=== PATIENT | male | born 1965 | race Caucasian/White ===

== ENCOUNTER 2021-01-01 11:55 | Day surgery (SDC) | payer OTHER ==
[~2021-01-01] VITALS: Ht 182.9 cm; Wt 111.8 kg
[~2021-01-01 11:55] MED LIST: ALEVE220 MG PO; ANDROGEL1.25 GM; ANDROGEL75 G1 TD; CLARITIN10 M2 PO; NORCO 10-325 T1 EACH PO; TIROSINT75 MCG PO
--- NOTE | 2021-01-01 14:02 | NUR ---
01/01/21 1402 Roxy Gong 1356 PATIENT AWAKE ON ARRIVAL TO PACU. RESP EVEN AND UNLABORED, ROOMAIR SATS >93%. PATIENT DENIES PAIN OR NAUSEA.
[2021-01-02] MEDS ORDERED: MOTRIN IB200 MG PO ×2 (08:58)
[2021-01-02] MEDS ORDERED: TYLENOL EXTRA500 MG PO ×2 (08:59)
[2021-01-02] MEDS ORDERED: PERCOCET 7.5-31 EACH PO ×2 (09:00)
--- NOTE | 2021-01-02 11:59 | PATH ---
[facility] [address] [place] [place] [address] Signed SPECIMEN(S): A DESCENDING/LEFT COLON POLYP AT 70 CM SPECIMEN(S): B BIOPSY AT 50 CM SPECIMEN SOURCE: A. DESCENDING/LEFT COLON POLYP AT 70 CM B. BIOPSY AT 50 CM CLINICAL HISTORY: Colonoscopy. History of polyps. MICROSCOPIC DESCRIPTION: Histologic sections of all submitted blocks are examined by light microscopy. These findings, together with the gross examination, support the pathologic diagnosis. FINAL PATHOLOGIC DIAGNOSIS: A. Colon, descending/left at 70 cm, polypectomy: - Tubular adenoma. B. Colon, 50 cm, polypectomy: - Tubular adenoma. BRP:cml:C2NR GROSS DESCRIPTION: Two specimens are received in two containers labeled with "KM." A. The specimen, labeled "KM, 70 cm left colon polypectomy," is received in formalin and consists of two fragments of pink-aquino tissue (0.3 and 0.5 cm in greatest dimension). The resection margin of the larger piece is inked blue and the larger piece is bisected. The specimen is submitted entirely in cassette (A1). B. The specimen, labeled "KM, 50 cm," is received in formalin and consists of three fragments of pink-aquino tissue (0.2-0.4 cm in greatest dimension). The specimen is submitted entirely in cassette (B1). AC (under the direct supervision of a pathologist) The Gross Description was prepared using a voice recognition system. The report was reviewed for accuracy; however, sound-alike word errors, addition and/or deletions may occur. If there is any question about this report, please contact Client Services. PERFORMING LABORATORY: The technical component was performed by [employer], [address] [place] [id number] (Clinical Advisor: Emily Schmitz MD; CLIA# [id number]). PATIENT NAME: MISTY PEÑA PATHOLOGY DATE OF : 67 REPORT #: [id number] PHYSICIAN: WILMER PATHOLOGY PCP: NOELLE CARPENTER PAC REPORT IS CONFIDENTIAL AND NOT TO BE RELEASED WITHOUT AUTHORIZATION [facility] [address] [place], [place] [address] Signed Professional interpretation was performed by [facility] [facility], [address] [place], [place] [address] (CLIA# [id number]). Diagnostician: Donavan Cook MD Pathologist Electronically Signed 01/02/2021 Copies: ~ PATIENT NAME: MISTY PEÑA PATHOLOGY DATE OF : 67 REPORT #: [id number] PHYSICIAN: WILMER PATHOLOGY PCP: NOELLE CARPENTER PAC REPORT IS CONFIDENTIAL AND NOT TO BE RELEASED WITHOUT AUTHORIZATION
--- NOTE | 2021-01-03 10:50 | OR ---
[facility] [address] [place], [place] [address] Signed DATE OF OPERATION: 01/01/2021 SURGEON: Addis Middleton MD PREOPERATIVE DIAGNOSIS: History of polyps (greater than 4.5 years ago). POSTOPERATIVE DIAGNOSIS: Polyps x4. PROCEDURE: Total colonoscopy to cecum with cold snare polypectomy x2 and cold morcellation polypectomy x2. ANESTHESIA: Intravenous sedation; fentanyl 100 mcg and Versed 7 mg total. INDICATION: This 55-year-old white man is a patient of VIRGINIA Bolaños. He underwent colonoscopy 4.5 years ago in [place] by Dr. Lonnie Pryor where he was found to have several polyps. He is recommended to have repeat colonoscopy in 3 years. Due to the pandemic and other factors, delay of repeat colonoscopy is noted. He has no symptoms of bleeding diarrhea or constipation at this time. He is admitted at this time to undergo colonoscopy for surveillance. The risks of bleeding, infection, and perforation were reviewed with him. He understands and wished to proceed. FINDINGS: The prep was good. Complete colonoscopy was undertaken to the cecum without question. Had 4 small polyps of the left colon dominantly, all were excised completely. Two were lost unfortunately in attempts to retrieval. DESCRIPTION OF PROCEDURE: The patient was brought to the endoscopy suite and placed in lateral decubitus position, given intravenous sedation to the point of slurred speech and nystagmus. Digital rectal examination was normal. An Olympus video colonoscope was passed in the rectum and manipulated throughout the colon ultimately intubating the cecum itself. The ileocecal valve and appendiceal orifice were normal. The layer of mucoid stool was noted in the right colon. Irrigation was undertaken to allow for good visualization of the mucosa. This cleared Electronically Signed By: ADDIS MIDDLETON MD 01/03/21 1050 PATIENT NAME: MISTY PEÑA OPERATIVE REPORT DATE OF : 67 REPORT #: [id number] PHYSICIAN: ADDIS MIDDLETON MD PCP: JASMINE WATKINS PAC REPORT IS CONFIDENTIAL AND NOT TO BE RELEASED WITHOUT AUTHORIZATION [facility] [address] [place], [place] [address] Signed up by the mid transverse colon. Careful withdrawal of the scope throughout showed no sign of abnormality until approximately 70 cm from the anal verge where a small sessile polyp was noted. This was excised with cold snare technique. The scope was further withdrawn and 2 other small polyps were noted at 50 cm, excised with cold morcellation technique and finally a small one in the sigmoid excised with snare technique. Unfortunately, 2 of the very small polyps were lost in the attempts to retrieval. Further withdrawal of scope allowed for retroflexed view in the rectum, which was normal. The polyp trap in the endoscope system was examined thoroughly and still no evidence of the polyps that had been excised at least x2. He was taken to the recovery room in good condition. CONCLUDING DIAGNOSIS: Small polyps x4. PLAN: Recommend repeat colonoscopy in 3 years sooner if clinically indicated. He will return to the ongoing care of VIRGINIA Bolaños. MD DASH Bah/SHERRIE /[id number] cc: Jasmine Watkins PA-C Copies: JASMINE WATKINS ~ Electronically Signed By: ADDIS MIDDLETON MD 01/03/21 1050 PATIENT NAME: MISTY PEÑA OPERATIVE REPORT DATE OF : 67 REPORT #: [id number] PHYSICIAN: ADDIS MIDDLETON MD PCP: JASMINE WATKINS REPORT IS CONFIDENTIAL AND NOT TO BE RELEASED WITHOUT AUTHORIZATION
== END 2021-01-01 14:30 | disposition home or self-care (01) ==
LOC: OPS 11:55 → DS 11:55 → OPS 13:00 → DS 13:00 → OPS 14:30
PROVIDERS: ATTEND Surgery
PROC: 0DBN8ZX Excision of Sigmoid Colon, Via Natural or Artificial Opening Endoscopic, Diagnostic (ICD-10-PCS; 2021-01-01)
PROC: 0DBP8ZX Excision of Rectum, Via Natural or Artificial Opening Endoscopic, Diagnostic (ICD-10-PCS; principal; 2021-01-01 13:00)
DX: D12.4 Benign neoplasm of descending colon (principal); E03.9 Hypothyroidism, unspecified
CPT/HCPCS: 99153; G0500

== ENCOUNTER 2021-01-02 06:00 | Day surgery (SDC) | payer OTHER ==
[~2021-01-02] VITALS: Ht 182.9 cm; Wt 111.8 kg
--- NOTE | 2021-01-02 08:54 | NUR ---
01/02/21 0854 Roxy Gong 0845 PATIENT ARRIVES TO PACU AWAKE, TALKING APPROPRIATELY WITH STAFF. RESP EVEN AND UNLABORED, MASK AT 10 LITERS, DECREASED TO 6 LITERS. 0850 PATIENT SITTING UP TALKING WITH STAFF. PILLOW GIVEN TO SPLINT ABD. RESP EVEN AND UNLABORED, MASK OFF, ROOM AIR SATS >95%. CONTINUES TO DENY PAIN OR NAUSEA.
[2021-01-02] MEDS ORDERED: MOTRIN IB200 MG PO ×2 (08:58)
[2021-01-02] MEDS ORDERED: TYLENOL EXTRA500 MG PO ×2 (08:59)
[2021-01-02] MEDS ORDERED: PERCOCET 7.5-31 EACH PO ×2 (09:00)
--- NOTE | 2021-01-02 09:32 | NUR ---
0920-PATIENT BACK TO ROOM FROM PACU ON . RECEIVED REPORT FROM ALEXIS CAMPOS. PATIENT IS AWAKE. VSS. RATES PAIN 2/10 AND THIS IS TOLERABLE. DENIES NAUSEAS. DRESSING IS CLEAN, DRY, AND INTACT. PROVIDED PATIENT WITH PUDDING, CRACKERS, AND WATER. PARTNER AT BEDSIDE. CALL LIGHT WITHIN REACH.
--- NOTE | 2021-01-02 10:17 | NUR ---
1002-PATIENT RATES PAIN 3/10 AND GIVEN PAIN MEDICATION PER EMAR. 1010-PATIENT UP TO BATHROOM WITH 1 RN ASSIST. GAIT STEADY AND TOLERATED WELL. PATIENT VOIDED 575ML. PATIENT STATES PAIN IS TOLERABLE UP WALKING AROUND.
--- NOTE | 2021-01-02 10:23 | NUR ---
PATIENT AWAKE AND LAYING IN BED. VSS. RATES PAIN 3/10. DENIES NAUSEA. DRESSING HAS A SMALL AMOUNT OF RED DRAINAGE NOTED. PARTNER AT BEDSIDE. PATIENT IS READY TO GO HOME.
--- NOTE | 2021-01-02 11:06 | NUR ---
PT IS ALERT, ORIENTED AND SUPPORTED BY HIS FRIEND ROXANA.PT SEEMS TO BE INFORMED, ALL QUESTIONS ASKED ANSWERED. ROXANA WILL LEAVE FOR WORK, BUT RETURN FOR DC. PT REQUESTED PRAYER, WILL FOLLOW NEEDED
--- NOTE | 2021-01-03 10:50 | OR ---
[facility] [address] [place], [place] [address] Signed DATE OF OPERATION: 01/02/2021 SURGEON: Addis Middleton MD PREOPERATIVE DIAGNOSIS: Incisional hernia at umbilicus. POSTOPERATIVE DIAGNOSIS: Incisional hernia at umbilicus. PROCEDURES: 1. Repair of incisional hernia. 2. Implantation of Prolene mesh underlay technique. ANESTHESIA: General endotracheal, Celestine Carlos, VENDING MACHINE COIN COLLECTOR and local 10 mL of 0.25% Marcaine with epinephrine. INDICATION: This 55-year-old man is a patient of VIRGINIA Bolaños. He underwent laparoscopic cholecystectomy by Dr. Vikram Montgomery in 2013. He has since developed a hernia in the region of the umbilicus. A transverse supraumbilical scar is noted and a reducible hernia is identified in this area. The patient underwent colonoscopy by me yesterday which showed four small polyps, all of them excised. He is admitted at this time today to undergo repair of the incisional hernia likely with implantation of Prolene mesh. Understanding well, the risks of bleeding, infection, and recurrence. Understand this, he wished to proceed. FINDINGS: There were actually two defects, one beneath the transverse incision in the supraumbilical area and one at the umbilicus itself. Both were made to be in continuity with the other development of the properitoneal space and implantation of Prolene mesh in an underlay technique. The fascia was reapproximated subsequently. DESCRIPTION OF PROCEDURE: The patient was brought to the operating room, given a general endotracheal anesthetic. Preoperative antibiotic Ancef was given. Sequential compression device stockings were used and heparin subcutaneously administered. The abdomen was prepared with a chlorhexidine solution and draped sterilely after clipping. Palpation of the umbilicus and the transverse incision above the umbilicus was undertaken and the fascial defect at Electronically Signed By: ADDIS MIDDLETON MD 01/03/21 1050 PATIENT NAME: MISTY PEÑA OPERATIVE REPORT DATE OF : 67 REPORT #: [id number] PHYSICIAN: ADDIS MIDDLETON MD PCP: JASMINE WATKINS PAC REPORT IS CONFIDENTIAL AND NOT TO BE RELEASED WITHOUT AUTHORIZATION [facility] [address] [place], [place] [address] Signed the umbilicus was quite clear to a degree beneath the incision itself. On the basis of this, a vertical incision was made crossing the transverse incision, but in a circumumbilical fashion. Dissection was carried through the dermis with electrocautery and using sharp and electrocautery dissection, dissection was carried down to the fascial level. There appeared to be a fascial defect just below the umbilicus itself as well as a fascial defect cephalad to that. The fascial defects were made to be in continuity with each other. The fascia was cleared from the overlying subcutaneous tissue and the hernia sac opened and intraabdominal contents found to be normal. A plane was developed between the properitoneal space and the overlying fascia circumferentially for a few cm. The opened peritoneum was then reapproximated with running 2-0 Vicryl suture. A circular piece of Prolene mesh was placed in the properitoneal space and secured circumferentially with interrupted 0 Prolene sutures with Prolene pledgets. The fascia was then reapproximated vertically with interrupted 0 Prolene with Prolene pledgets as well. A 10 mL of 0.25% Marcaine with epinephrine was injected locally. Gabriela layer was reapproximated with interrupted 2-0 Vicryl and the skin was closed with running subcuticular 3-0 Vicryl. Special care was taken to align the previous transverse incision. MD DASH Bah/SHERRIE /[id number] cc: Jasmine Watkins PA-C Copies: JASMINE WATKINS ~ Electronically Signed By: ADDIS MIDDLETON MD 01/03/21 1050 PATIENT NAME: MISTY PEÑA OPERATIVE REPORT DATE OF : 67 REPORT #: [id number] PHYSICIAN: ADDIS MIDDLETON MD PCP: JASMINE WATKINS PAC REPORT IS CONFIDENTIAL AND NOT TO BE RELEASED WITHOUT AUTHORIZATION
== END 2021-01-02 10:30 | disposition home or self-care (01) ==
LOC: DS 06:00
PROVIDERS: ATTEND Surgery
PROC: 0WUF0JZ Supplement Abdominal Wall with Synthetic Substitute, Open Approach (ICD-10-PCS; principal; 2021-01-02 06:45)
DX: K43.2 Incisional hernia without obstruction or gangrene (principal); E03.9 Hypothyroidism, unspecified
CPT/HCPCS: 00832; C1781; J0690; J1100; J1644; J1885; J2001; J2250; J2405; J2704; J3010; J7121

== ENCOUNTER 2022-11-18 00:24 | Emergency (ER) | payer OTHER ==
[~2022-11-18] VITALS: Ht 182.9 cm; Wt 111.6 kg
[~2022-11-18 00:24] MED LIST changes: +MOTRIN IB200 MG PO; +PERCOCET 7.5-31 EACH PO; +TYLENOL EXTRA500 MG PO
--- OUTSIDE RECORDS SUMMARY | 2022-11-18 00:26 | XMS ---
PreManage Notification: MISTY PEÑA Security Pattern Developer Events No recent Security Events currently on file [facility] There are no care providers on record at this time. [facility] has no Care Guidelines for this patient. Lenore VISIT COUNT (12 MO.) 1 KISHORE Avila TOTAL 1 NOTE: Visits indicate total known visits. ED/UCC VISIT TRACKING (12 MO.) 11/18/2022 00:24 KISHORE Weeks OR TYPE: Emergency COMPLAINT: - LT EAR PAIN INPATIENT VISIT TRACKING (12 MO.) No inpatient visits to display in this time frame [email or web address]
[2022-11-18] MEDS ORDERED: COLCRYS0.6 MG PO (00:43)
[2022-11-18] MEDS ORDERED: ALLOPURINOL100 MG PO (00:44)
[2022-11-18] MEDS ORDERED: FLONASE ALLERG9.9 ML NAS (00:59)
[2022-11-18 01:11] VITALS: BP 190/110
== END 2022-11-18 01:11 | disposition home or self-care (01) ==
LOC: ED 00:24
DX: H68.009 Unspecified Eustachian salpingitis, unspecified ear (principal); Z91.013 Allergy to seafood; Z88.2 Allergy status to sulfonamides; Z79.899 Other long term (current) drug therapy
CPT/HCPCS: 99282; J1100

== ENCOUNTER 2024-07-02 13:03 | Day surgery (SDC) | payer OTHER ==
[~2024-07-02] VITALS: Ht 182.9 cm; Wt 101.3 kg
--- NOTE | ~2024-07-02 | OR ---
[facility] [address] [facility] [place], [place] [address] Draft DATE OF OPERATION: 07/02/2024 SURGEON: Addis Middleton MD PREOPERATIVE DIAGNOSIS: History of colon polyps, surveillance colonoscopy. POSTOPERATIVE DIAGNOSIS: Polyps x5. PROCEDURE: Total colonoscopy with cold morcellation polypectomy x5. ANESTHESIA: Intravenous sedation; fentanyl 150 mcg and Versed 7 mg. INDICATION: This 59-year-old white man is a patient of Noelle Watkins and well known to me from the past. In 2015, he had four tubular adenomas and in 2020, two tubular adenomas. He currently has no symptoms of bleeding, diarrhea, or constipation. He is admitted to undergo surveillance colonoscopy. He understands the risk of bleeding, infection, and perforation. FINDINGS: The prep was adequate. A fair amount of irrigation was required in the cecal area and right colon. There were five polyps in total excised; one in the proximal left, another in the sigmoid, additional including the rectosigmoid and two in the rectum. DESCRIPTION OF PROCEDURE: The patient was brought to the endoscopy suite and placed in the lateral decubitus position, given intravenous sedation to the point of slurred speech and nystagmus. Digital rectal examination was normal. An Olympus video colonoscope was passed in the rectum and manipulated throughout the colon. Irrigation was undertaken as the bowel prep was not particularly great. The scope was advanced ultimately to the cecum. A fair amount of irrigation was required and suctioning to adequately visualize the cecum, but it was accomplished ultimately. Scope was then withdrawn and careful examination showed no sign of abnormality into the proximal left colon where a sessile small polyp less than 5 mm was noted, this was excised with cold morcellation technique. Further withdrawal showed another similar PATIENT NAME: MISTY PEÑA OPERATIVE REPORT DATE OF : 67 REPORT #: [id number] PHYSICIAN: ADDIS MIDDLETON MD PCP: NOELLE WATKINS PAC REPORT IS CONFIDENTIAL AND NOT TO BE RELEASED WITHOUT AUTHORIZATION [facility] [address] [place], [place] [address] Draft polyp in the sigmoid, similarly excised; another in the rectosigmoid additionally excised with cold morcellation technique and two in the rectum similarly excised. Retroflexed view was otherwise normal. Scope was removed and the patient was taken to the recovery room in good condition. CONCLUDING DIAGNOSIS: Polyps x5. PLAN: Recommend repeat colonoscopy in 3 to 5 years, sooner if symptoms should develop. He will return to the ongoing care of VIRGINIA Bolaños. MD DASH Bah/HIENL /[id number] cc: Dr. Watkins Copies: ~ PATIENT NAME: MISTY PEÑA OPERATIVE REPORT DATE OF : 67 REPORT #: [id number] PHYSICIAN: ADDIS MIDDLETON MD PCP: NOELLE WATKINS PAC REPORT IS CONFIDENTIAL AND NOT TO BE RELEASED WITHOUT AUTHORIZATION
[~2024-07-02 13:03] MED LIST changes: +ALLOPURINOL100 MG PO; +COLCRYS0.6 MG PO; +FLONASE ALLERG9.9 ML NAS; +IBLOOD GLUCOSE TEST STRIP 1 EA TEST VI PRN; +LACTATED RINGER'S 1,000 ML IV SCH; +LIDOCAINE HCL 1% 5 ML SDV INJ ONE; +MIDAZOLAM HCL 5 MG/5 ML VIAL IV PRN; +fentaNYL citrate 100 MCG/2 ML VIAL IV PRN
[2024-07-02 13:31] VITALS: BP 105/65
[2024-07-02] MEDS ORDERED: LISINOPRIL-HCT1 EACH PO (13:34)
[2024-07-02] MEDS ORDERED: fentaNYL citrate 100 MCG/2 ML VIAL ONE (13:40)
[2024-07-02] MEDS ORDERED: MIDAZOLAM HCL 5 MG/5 ML VIAL ONE (13:40)
--- NOTE | 2024-07-02 14:41 | NUR ---
07/02/24 1441 Mabel Morejon OXYGEN SATURATION REMAINS 98% ON 2L VIA NC. OXYGEN IS DISCONTINUED AT THIS TIME.
[2024-07-02 15:07] VITALS: BP 107/73
--- NOTE | 2024-07-05 11:17 | PATH ---
[facility] [address] [place], [place] [address] Signed SPECIMEN(S): A RECTAL POLYP SPECIMEN(S): B DESCENDING COLON POLYP SPECIMEN(S): C SIGMOID POLYP SPECIMEN(S): D RECTOSIGMOID POLYP SPECIMEN(S): E RECTAL POLYP #2 SPECIMEN SOURCE: A. RECTAL POLYP B. DESCENDING COLON POLYP C. SIGMOID POLYP D. RECTOSIGMOID POLYP E. RECTAL POLYP #2 CLINICAL HISTORY: History of colon polyps, multiple polyps FINAL PATHOLOGIC DIAGNOSIS: A. Rectal polyp, biopsy: - Hyperplastic polyp (2 of 3 pieces). - Benign colonic mucosa with a lamina propria lymphoid aggregate (1 of 3 pieces). - Negative for dysplasia and malignancy. B. Colon, descending polyp, biopsy: - Portions of tubular adenoma (2 of 3 pieces); negative for high-grade dysplasia and malignancy. - Portion of benign, unremarkable colonic mucosa (1 of 3 pieces). C. Colon, sigmoid polyp, biopsy: - Tubular adenoma. - Negative for high-grade dysplasia and malignancy. D. Colon, rectosigmoid polyp, biopsy: - Tubular adenoma (1 of 3 pieces); negative for high-grade dysplasia and malignancy. - Hyperplastic polyp (1 of 3 pieces). - Benign, unremarkable colonic mucosa (1 of 3 pieces). E. Rectal polyp #2, biopsy: - Hyperplastic polyp with chronic inflammation in the lamina propria. - Negative for acute cryptitis, acute crypt abscesses, and granulomas. - Negative for dysplasia and malignancy. SDL MICROSCOPIC EXAMINATION: PATIENT NAME: MISTY PEÑA PATHOLOGY DATE OF : 67 REPORT #: [id number] PHYSICIAN: WILMER HERNANDEZ PCP: NOELLE CARPENTER PAC REPORT IS CONFIDENTIAL AND NOT TO BE RELEASED WITHOUT AUTHORIZATION [facility] [address] [place], [place] [address] Signed Histologic sections of all submitted blocks are examined by light microscopy. These findings, together with the gross examination, support the pathologic diagnosis. GROSS DESCRIPTION: A. The specimen, labeled and designated "Casey, rectal polyp," is received in formalin and consists of three aquino soft tissue fragments, ranging from 0.1-0.3 cm. Entirely submitted in (A1). B. The specimen, labeled and designated "Casey, descending colon polyp," is received in formalin and consists of three aquino soft tissue fragments, ranging from 0.1-0.3 cm. Entirely submitted in (B1). C. The specimen, labeled and designated "Casey, sigmoid polyp," is received in formalin and consists of one aquino soft tissue fragment, 0.4 cm. Entirely submitted in (C1). D. The specimen, labeled and designated "Casey, rectosigmoid polyp," is received in formalin and consists of three aquino soft tissue fragments, ranging from 0.2-0.3 cm. Entirely submitted in (D1). E. The specimen, labeled and designated "Casey, rectal polyp #2," is received in formalin and consists of one aquino soft tissue fragment, 0.3 cm. Entirely submitted in (E1). VB (under the direct supervision of a pathologist) The Gross Description was prepared using a voice recognition system. The report was reviewed for accuracy; however, sound-alike word errors, addition and/or deletions may occur. If there are any questions about this report, please contact Client Services. ADDITIONAL NOTES: Immunohistochemical and/or in situ hybridization studies if performed in this case included appropriate positive controls that reacted as expected. This test was developed and its performance characteristics determined by [employer]. It has not been cleared or approved by the U.S. Food and Drug Administration. The FDA has determined that such clearance or approval is not necessary. This test is used for clinical purposes. It should not be regarded as investigational or for research. [facility] is certified under the Clinical Laboratory Improvement Amendments of 1988 (CLIA) as qualified to perform high complexity clinical laboratory testing. PERFORMING LABORATORY: Technical component was performed by [employer], [facility] [place], PATIENT NAME: MISTY PEÑA PATHOLOGY DATE OF : 67 REPORT #: [id number] PHYSICIAN: WILMER HERNANDEZ PCP: NOELLE CARPENTER PAC REPORT IS CONFIDENTIAL AND NOT TO BE RELEASED WITHOUT AUTHORIZATION [address] [address] [place] [address] (CLIA# [id number]). Professional interpretation was performed by [employer] [facility], [address] [place] [phone] (CLIA#: [id number]). Diagnostician: Quynh Sanchez MD Pathologist Electronically Signed 07/05/2024 Copies: ~ PATIENT NAME: CASEYMISTYTARAH RAMIREZ PATHOLOGY DATE OF : 67 REPORT #: [id number] PHYSICIAN: WILMER PATHOLOGY PCP: NOELLE CARPENTER PAC REPORT IS CONFIDENTIAL AND NOT TO BE RELEASED WITHOUT AUTHORIZATION
== END 2024-07-02 15:24 | disposition home or self-care (01) ==
LOC: DS 13:03
PROVIDERS: ATTEND Surgery
PROC: 0DBN8ZX Excision of Sigmoid Colon, Via Natural or Artificial Opening Endoscopic, Diagnostic (ICD-10-PCS; 2024-07-02)
PROC: 0DBP8ZX Excision of Rectum, Via Natural or Artificial Opening Endoscopic, Diagnostic (ICD-10-PCS; 2024-07-02)
PROC: 0DBG8ZX Excision of Left Large Intestine, Via Natural or Artificial Opening Endoscopic, Diagnostic (ICD-10-PCS; principal; 2024-07-02 14:00)
DX: Z12.11 Encounter for screening for malignant neoplasm of colon (principal); D12.7 Benign neoplasm of rectosigmoid junction; D12.5 Benign neoplasm of sigmoid colon; K62.89 Other specified diseases of anus and rectum; K43.2 Incisional hernia without obstruction or gangrene; I10 Essential (primary) hypertension; E03.9 Hypothyroidism, unspecified; Z79.890 Hormone replacement therapy; Z79.899 Other long term (current) drug therapy
CPT/HCPCS: 99153; G0500; J2250; J3010; J7121